=== PATIENT | male | born 1955 | race Caucasian/White ===

== ENCOUNTER → 2018-08-24 | Outpatient (CLI) | payer BC, SELFPAY ==
[2018-08-24 12:59] LABS: PSA,Total - Annual Screen 1.71 ng/mL (0.00-4.00)
== END | disposition home or self-care (01) ==
PROVIDERS: Family Provider Family Medicine; PCP Family Medicine; Referring Provider Urology; Visit Provider Urology
DX: R97.20 Elevated prostate specific antigen [PSA] (principal)
CPT/HCPCS: 36415; 84153; G0103

== ENCOUNTER 2018-10-27 08:18 | Day surgery (SDC) | payer BC, SELFPAY ==
[2018-10-20 09:16] VITALS: BP 115/68; PULSE 54; RESP 16; TEMP 36.6; O2SAT 98; BMI 24.3
[2018-10-20 10:17] LABS: Hematocrit 44.9 % (40-54); Mean Corp Hgb Conc 33.4 g/dL (32-36); Mean Corpuscular Hgb 32.1 pg (27.0-32.0); Mean Corpuscular Volume 96.1 fL (80-94); Mean Platelet Vol. 9.9 fl (6.2-12.0); Platelet Count 190 K/mm3 (150-450); RBC Distribution Width CV 12.1 % (11.6-14.6); RBC Distribution Width SD 42.7 fl (35.1-43.9); Red Blood Count 4.67 M/mm3 (4.6-6.2); White Blood Count 6.3 K/mm3 (4.4-11.0)
[2018-10-20 10:47] LABS: Anion Gap 3 (5-15); BUN 12 mg/dL (7-18); BUN/Creat Ratio 11.8 RATIO (10-20); Chloride 107 mmol/L (98-107); Creatinine, Serum 1.02 mg/dL (0.70-1.30); EST Glomerular Filtration Rate 78 mL/min (>60); Est Glom Filt Rate - Afr Amer 95 mL/min (>60); Estimated Creatinine Clearance 76.54 ml/min; Glucose 93 mg/dL (74-106); Potassium 4.5 mmol/L (3.5-5.1); Sodium Level 139 mmol/L (136-145)
[2018-10-27] VITALS (13 sets, daily range): BP systolic 105–120; BP diastolic 52–77; PULSE 52–72; RESP 14–16; TEMP 36.4–36.7; O2SAT 94–99; BMI 24.3
[2018-10-27] MEDS: Lactated Ringers 1,000 ML 100 ML IV ×2 (09:18→12:28)
--- NOTE | 2018-10-27 10:25 | PROS_PTH ---
PATIENT: STACY HELTON II LOC: [facility] [place] U#:[id number] AGE/SX: 63/M ROOM: RE10/27/[address]: Dr. Dexter Dwyer MD : [id number] BED: DIS: 10/28/2018 SPEC #: [id number] RECD: 10/27/18 16:49 STATUS: GAUTAM REGabino #: [id number] ELVIRA: 10/27/18 10:[address]: Dexter Dwyer DEPT: SURGICAL PATHOLOGY RECD BY: Pramod Barker ENTERED: 10/28/18 07:45 SP TYPE: TURP OTHR DR: Dr. Sung Briceno MD Tissues: Prostate, NOS Procedures: Surgery Specimen Level IV HEADER OPERATION: Cysto, TUR, prostate, Olympus PRE-OP DIAGNOSIS: Benign prostatic hyperplasia with lower urinary tract symptoms TISSUE SUBMITTED: Prostate tissue MICROSCOPIC DIAGNOSIS Prostate tissue, TUR: Benign prostatic hyperplasia, glandular and stromal type. Chronic inflammation. SJ:rojelio 10/29/18 MICROSCOPIC DESCRIPTION Slides are reviewed. GROSS DESCRIPTION Received is one container labeled with the patient's name and designated prostate tissue. The specimen consists of multiple irregular fragments of pink-doyle, rubbery, soft tissue that in aggregate weigh 9.1 gm and measure in aggregate 4 x 4 x 2 cm. The entire specimen is submitted in eight cassettes. / PAWAN:rojelio 10/28/18 TC:5 CPT: 09415
[2018-10-27] MEDS: Cefazolin 2 GM in 0.9% Normal Saline 100 ML IV (10:59)
[2018-10-27] MEDS: Lubricating Jelly 60 GM Tube 30 GM TOPICAL (11:09)
--- NOTE | 2018-10-27 11:55 | DCINST_ITS ---
Discharge Diet: Light diet - advance as tolerated Discharge Activity: Return to Normal Activity, May Shower Lifting Restrictions: no lifting Call your doctor if your incision/area has: Continuous Slow Oozing, Sudden Increased Bleeding, Increased Pain/ Swelling, Increased Redness, Foul Smelling Discharge, Swelling at the incision site Call your doctor if you observe: Fever of 101 or Higher Suture Line Care: Avoid Pulling/Pushing, Avoid Pinching/Bending Instructions: Transurethral Resection of the Prostate (TURP): Home Recovery Allergies/Adverse Reactions: Allergies No Known Allergies Allergy (Verified 10/20/18 09:11) Medications to take at Discharge Flecainide Acetate 50 mg PO BID 10/20/18 Metoprolol(XL)Succ [Toprol Xl (Beta Qiana)] 25 mg PO 1900 10/20/18 Montelukast [Singulair] 10 mg PO PRN PRN 10/20/18 Rivaroxaban [Xarelto] 20 mg PO DAILY 10/20/18 Tamsulosin HCl [Flomax] 0.4 mg PO QHS 10/20/18 Ciprofloxacin [Cipro] 500 mg PO BID #10 tab 10/27/18 The following prescriptions were given: Ciprofloxacin [Cipro] 500 mg PO BID #10 tab Prescription Printed Primary Care Physician: Sung Briceno MD [Primary Care Provider] - Test Results: Test results from this visit will be discussed in further detail at your follow- up appointment, if applicable. Please Follow Up With: Dexter Dwyer MD When: in 2 weeks, please call to make an appointment.
--- NOTE | 2018-10-27 11:56 | OP.PCM_ITS ---
Report of Operation Date of Procedure: 10/27/18 Pre-Operative Diagnosis: BPH with obstruction Post-Operative Diagnosis: Same Surgery/Procedure Performed:: Transurethral resection of the prostate Description of Surgical Findings:: 63-year-old male was found to have significant obstruction from a high riding bladder neck and median lobe he was talked about the options of management recommended we proceed with a TURP we also talked about other options as minimally invasive procedures but long-term we thought the best result durability would be a TURP. We talked about the risk of a TURP bleeding infection scar tissue formation and incontinence. 63-year-old male taken back to the operating room after smooth induction of general anesthesia he was placed in dorsolithotomy position went into the bladder with a 24 [place]ian noncontinuous flow Olympus resectoscope we used the bipolar system. Identify the anatomy identified the verumontanum identified the right and left ureteral orifice identified the bladder neck and identified a large median lobe had some minor lateral lobes most obstruction was coming from a large median lobe protruding into the bladder I then resected the median lobe resected back to the verumontanum resected the right lobe of the prostate resect the left low the prostate then very carefully resected the apical tissue obtained hemostasis removed all the chips of the bladder obtain good hemostasis we did a flow test had a nice wide open flow look inside the bladder had good no resection past the verumontanum well-preserved sphincter and then I put a catheter into the bladder and continuous bladder irrigation he was taken back to PACU in good condition. Type of Anesthesia:: General Drains: 22fr 3 way - Admit VTE Documentation VTE Present on Admission: No VTE Mechan Device Prophylaxis: SCD's
[2018-10-27] MEDS: Ibuprofen 600 MG Tablet PO ×2 (14:21→19:57)
[2018-10-27] MEDS: 0.9% Normal Saline 1,000 ML 75 ML IV (14:22)
[2018-10-27] MEDS: Metoprolol(XL)Succ 25 MG Tablet PO (19:41)
[2018-10-27] MEDS: Flecainide 100 MG Tablet 50 MG PO (22:25)
[2018-10-27] MEDS: Docusate Sodium 100 MG Capsule PO (22:25)
[2018-10-27] MEDS: Tamsulosin HCl 0.4 MG Capsule PO (22:25)
[2018-10-27] MEDS: Ciprofloxacin 250 MG Tablet PO (22:25)
[2018-10-28 02:00] VITALS: BP 106/49; PULSE 58; RESP 16; TEMP 36.7; O2SAT 98
[2018-10-28] MEDS: 0.9% Normal Saline 1,000 ML 75 ML IV (03:26)
[2018-10-28] MEDS: Ibuprofen 600 MG Tablet PO (05:28)
--- NOTE | 2018-10-28 07:36 | PCM.PN.BLA ---
Progress Note 63-year-old male status post TURP for obstruction urine is fairly clear today we will remove the catheter and after he is able to urinate he can go home today.
[2018-10-28 07:59] VITALS: BP 112/53; PULSE 60; RESP 18; TEMP 36.8; O2SAT 100
[2018-10-28 09:00] VITALS: PULSE 60
[2018-10-28] MEDS: Pantoprazole Sodium 40 MG Tablet PO (09:49)
[2018-10-28] MEDS: Ciprofloxacin 250 MG Tablet PO (09:49)
[2018-10-28] MEDS: Flecainide 100 MG Tablet 50 MG PO (09:49)
[2018-10-28] MEDS: Docusate Sodium 100 MG Capsule PO (09:49)
[2018-10-28 11:37] VITALS: BP 117/65; PULSE 60; RESP 18; TEMP 37; O2SAT 100
== END 2018-10-28 11:55 | disposition home or self-care (01) ==
LOC: SDC 08:19 → AC 08:20 → MS3 13:05
PROVIDERS: Anesthesiology; Family Provider Family Medicine; PCP Family Medicine; Referring Provider Urology; Visit Provider Urology
PROC: (CPT 52630; principal; 2018-10-27 10:15)
DX: N41.1 Chronic prostatitis (principal); N40.1 Benign prostatic hyperplasia with lower urinary tract symptoms; R35.0 Frequency of micturition; R39.11 Hesitancy of micturition; R35.1 Nocturia; G47.30 Sleep apnea, unspecified; I48.91 Unspecified atrial fibrillation; I44.0 Atrioventricular block, first degree
CPT/HCPCS: 52630; 36415; 80048; 85027; 88305; J7030; J7120; J2405

== ENCOUNTER 2021-05-02 13:51 | Outpatient (CLI) | payer MEDICARE, BC, SELFPAY ==
[2021-05-02 15:03] LABS: PSA,Total- Diagnostic 0.93 ng/mL (0.0-4.0)
== END 2021-05-02 23:59 | disposition home or self-care (01) ==
PROVIDERS: PCP Family Medicine; Visit Provider Urology
DX: N40.1 Benign prostatic hyperplasia with lower urinary tract symptoms (principal)
CPT/HCPCS: 36415; 84153